=== PATIENT | male | born 1965 | race Caucasian/White ===

== ENCOUNTER 2018-06-12 15:49 | Emergency (ER) | payer OTHER, SELFPAY ==
[2018-06-12 16:02] VITALS: BP 130/90; PULSE 80; TEMP 36.6; O2SAT 98
--- NOTE | 2018-06-12 16:12 | W.ED.GENAD ---
Discharge Plan Disposition Patient Disposition: HOME Condition: Good Discharge Details Chief Complaint: Allergic Clinical Impression: Allergic reaction to chemical substance Reason For Visit: allergic to bromine hot tub Primary Care Provider: Rabia,Local ED Provider: Andrade Cristobal [place] Meds and New Rx's Prescriptions: New prednisone 20 mg tablet 40 mg PO DAILY Qty: 8 RF: 0 Discharge Instructions Instructions: General Allergic Reaction (ED) Additional Instructions: Use Benadryl, 1-2 tablets every 6 hours for itching. Take prednisone daily for 4 days. Follow-up with primary care next week if not better. Return to ED for difficulty breathing, vomiting, cramping, diarrhea, other concerns. Medical Decision Making Patient here with a rather diffuse pruritic rash related to bromine. Steroid creams are not helping. Will burst him with prednisone and have him continue Benadryl every 6 hours to control the itching. He has no airway symptoms or GI symptoms. No evidence of anaphylaxis. More of a contact dermatitis related to chemical exposure. HPI General Mode of arrival: ambulatory. Date/Time Provider Initiated Documentation: 06/12/18 16:11. Limitations to Documentation: no limitations. Information obtained by: patient. HPI Narrative: Patient presents to ED with diffuse rash covering most of his body. 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 Chlorine does not bother him. He was in a hot tub with bromine on the . Rash started yesterday. It is more diffuse and more intense than usual. He does use steroid cream without relief. He has no respiratory symptoms. He has no throat swelling. He has no GI symptoms. Related Data Home Medications Medication Instructions Recorded Confirmed prednisone 40 mg PO DAILY #8 tab 06/12/18 Previous Rx's Medication Instructions Recorded prednisone 40 mg PO DAILY #8 tab 06/12/18 Allergies Allergy/AdvReac Type Severity Reaction Status Date / Time bromide salts Allergy Unverified 06/12/18 16:14 tide Allergy Uncoded 06/12/18 16:14 General Stated Complaint: Allergic MIGNON: 3 Review of Systems Cardiovascular Denies dyspnea Respiratory Denies dyspnea and Denies wheezing Gastrointestinal Reports diarrhea, Reports nausea and Reports vomiting Integumentary/Breasts Reports pruritus and Reports rash Allergic/Immunologic Denies wheezing PFSH Social History Smoking and Tabacco status: Never Exam Const General: cooperative, comfortable and no acute distress Orientation: alert and oriented x3 HENMT Mouth: oropharynx normal Throat: posterior oropharynx normal Neck Neck: trachea midline and supple Resp Effort & Inspection: normal respiratory effort Auscultation: clear to auscultation bilaterally Skin Other: Diffuse maculopapular pruritic erythematous rash involving the trunk groin and extremities. It spares from his shoulders up where he was not in the hot tub. Extrem General: no clubbing, cyanosis or edema Course Vital Signs Temperature 97.9 F 06/12/18 16:02 Pulse 80 06/12/18 16:02 Blood Pressure 130/90 06/12/18 16:02 Pulse Oximetry 98 06/12/18 16:02 Temperature 97.9 F 06/12/18 16:02 Temperature Source Temporal Artery Scan 06/12/18 16:02 Pulse 80 06/12/18 16:02 Blood Pressure 130/90 06/12/18 16:02 Pulse Oximetry 98 06/12/18 16:02 Oxygen Delivery Method Room Air 06/12/18 16:02 Oxygen Flow Rate 0 06/12/18 16:02
--- NOTE | 2018-06-12 16:18 | ED.GENADUL_ITS ---
Discharge Plan Disposition Patient Disposition: HOME Condition: Good Discharge Details Chief Complaint: Allergic Clinical Impression: Allergic reaction to chemical substance Reason For Visit: allergic to bromine hot tub Primary Care Provider: Rabia,Local ED Provider: Andrade Cristobal [place] Meds and New Rx's Prescriptions: New prednisone 20 mg tablet 40 mg PO DAILY Qty: 8 RF: 0 Discharge Instructions Instructions: General Allergic Reaction (ED) Additional Instructions: Use Benadryl, 1-2 tablets every 6 hours for itching. Take prednisone daily for 4 days. Follow-up with primary care next week if not better. Return to ED for difficulty breathing, vomiting, cramping, diarrhea, other concerns. Medical Decision Making Patient here with a rather diffuse pruritic rash related to bromine. Steroid creams are not helping. Will burst him with prednisone and have him continue Benadryl every 6 hours to control the itching. He has no airway symptoms or GI symptoms. No evidence of anaphylaxis. More of a contact dermatitis related to chemical exposure. HPI General Mode of arrival: ambulatory . Date/Time Provider Initiated Documentation: 06/12/18 16:11 . Limitations to Documentation: no limitations . Information obtained by: patient . HPI Narrative: Patient presents to ED with diffuse rash covering most of his body. 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 Chlorine does not bother him. He was in a hot tub with bromine on the . Rash started yesterday. It is more diffuse and more intense than usual. He does use steroid cream without relief. He has no respiratory symptoms. He has no throat swelling. He has no GI symptoms. Related Data Home Medications Medication Instructions Recorded Confirmed prednisone 40 mg PO DAILY #8 tab 06/12/18 Previous Rx's Medication Instructions Recorded prednisone 40 mg PO DAILY #8 tab 06/12/18 Allergies Allergy/AdvReac Type Severity Reaction Status Date / Time bromide salts Allergy Unverified 06/12/18 16:14 tide Allergy Uncoded 06/12/18 16:14 General Stated Complaint: Allergic MIGNON: 3 Review of Systems Cardiovascular Denies dyspnea Respiratory Denies dyspnea and Denies wheezing Gastrointestinal Reports diarrhea, Reports nausea and Reports vomiting Integumentary/Breasts Reports pruritus and Reports rash Allergic/Immunologic Denies wheezing PFSH Social History Smoking and Tabacco status: Never Exam Const General: cooperative, comfortable and no acute distress Orientation: alert and oriented x3 HENMT Mouth: oropharynx normal Throat: posterior oropharynx normal Neck Neck: trachea midline and supple Resp Effort & Inspection: normal respiratory effort Auscultation: clear to auscultation bilaterally Skin Other: Diffuse maculopapular pruritic erythematous rash involving the trunk groin and extremities. It spares from his shoulders up where he was not in the hot tub. Extrem General: no clubbing, cyanosis or edema Course Vital Signs Temperature 97.9 F 06/12/18 16:02 Pulse 80 06/12/18 16:02 Blood Pressure 130/90 06/12/18 16:02 Pulse Oximetry 98 06/12/18 16:02 Temperature 97.9 F 06/12/18 16:02 Temperature Source Temporal Artery Scan 06/12/18 16:02 Pulse 80 06/12/18 16:02 Blood Pressure 130/90 06/12/18 16:02 Pulse Oximetry 98 06/12/18 16:02 Oxygen Delivery Method Room Air 06/12/18 16:02 Oxygen Flow Rate 0 06/12/18 16:02
== END 2018-06-12 16:23 | disposition home or self-care (01) ==
LOC: ER 16:24
PROVIDERS: Emergency Provider Emergency Medicine
DX: R21 Rash and other nonspecific skin eruption (principal); Z77.098 Contact with and (suspected) exposure to other hazardous, chiefly nonmedicinal, chemicals
CPT/HCPCS: 99283